=== PATIENT | female | born 1970 | race Caucasian/White ===

== ENCOUNTER 2019-09-13 00:56 | Inpatient (IN) ==
[2019-09-13] MEDS ORDERED: Ondansetron 4 MG/2 ML VIAL IVP ONE (01:33)
[2019-09-13] MEDS ORDERED: 0.9 % Sodium Chloride 1,000 ML IVC ONE ×2 (01:33→02:59)
[2019-09-13] MEDS ORDERED: *HR* FentaNYL (PF) 100 MCG/2 ML VIAL IVP ONE (01:36)
[2019-09-13 02:16] LABS: Bilirubin,Urine Negative (Negative); Blood,Urine Large (Negative); Clarity,Urine Cloudy (Clear); Color,Urine Yellow (Yellow); Glucose,Urine (UA) Normal (Normal); Ketones,Urine Negative (Negative); Leukocyte Esterase,Urine Large (Negative); Nitrite,Urine Positive (Negative); Protein,Urine >=300 mg/dL (Neg-Trace); Specific Gravity,Urine 1.017 (1.010-1.025); Urobilinogen,Urine Normal (Normal)
[2019-09-13 02:18] LABS: Bacteria,Urine Few per hpf (None-Few); Hyaline Casts,Urine None Seen per lpf (None-Few); Squamous Epithelial Cell,Urine Many per lpf (None-Few); WBC,Urine TNTC per hpf (0-3)
[2019-09-13 02:34] LABS: Basophils % 0.2 %; Hemoglobin 14.8 g/dL (11.5-15.4); Mean Corpuscular HGB Conc 34.7 g/dL (31.6-35.5)
[2019-09-13 02:36] LABS: Hematocrit 42.6 % (35.3-44.9); Immature Granulocytes % 7.4 % (0-4); Immature Platelets 4.1 % (1.1-6.1); Lymphocytes # 0.5 K/mcL (0.6-4.6); Lymphocytes % 2.3 %; Mean Corpuscular Hemoglobin 29.5 pg (28.0-33.3); Mean Platelet Volume 10.6 fL (9.4-12.4); Monocytes # 1.1 K/mcL (0.0-1.3); Monocytes % 5.4 %; Neutrophils # 17.6 K/mcL (1.6-8.9); Platelet Count 141 K/mcL (140-400); Red Blood Count 5.01 M/mcL (3.82-4.97); Red Cell Distribution Width 13.2 % (11.5-14.5); Segmented Neutrophils % 84.7 %; White Blood Count 20.8 K/mcL (4.3-11.1)
[2019-09-13 02:51] LABS: Albumin 3.5 g/dL (3.5-5.7); Bilirubin,Direct 0.3 mg/dL (0.0-0.2); Bilirubin,Indirect 0.4 mg/dL (0.0-1.0); Bilirubin,Total 0.7 mg/dL (0.3-1.0); Calcium 9.1 mg/dL (8.6-10.3); Globulin 3.4 g/dL (2.4-3.5); Potassium 3.6 mEq/L (3.5-5.1); Total Protein 6.9 g/dL (6.4-8.9)
[2019-09-13 02:55] LABS: Platelet Estimate Decreased (Normal)
[2019-09-13] MEDS ORDERED: cefTRIAXone 1,000 MG in Water for inj. (sterile) 10 ML IVP ONE (02:58)
[2019-09-13] MEDS ORDERED: *HR* HYDROmorphone (PF) 1 MG/ML SYRINGE IVP ONE (04:04)
[2019-09-13] MEDS ORDERED: Naloxone 0.4 MG/ML INJ IVP PRN (04:10)
[2019-09-13] MEDS: *HR* Heparin 5,000 UNIT/ML VIAL SQ SCH ×3 (05:53→20:33)
[2019-09-13] MEDS: 0.9 % Sodium Chloride 1,000 ML IVC SCH ×2 (05:54→17:39)
[2019-09-13 06:50] LABS: Protein/Creatinine Ratio,Urine 2.95 mg/mg (0.00-0.20)
[2019-09-13] MEDS ORDERED: Levalbuterol Neb 1.25 MG/3 ML ONE (10:37)
[2019-09-13] MEDS ORDERED: lisinopriL 20 MG TABLET ONE (10:45)
[2019-09-13] MEDS ORDERED: *HR* LORazepam 2 MG/ML VIAL ONE (10:51)
[2019-09-13] MEDS ORDERED: Water for inj. (sterile) 10 ML ONE (10:52)
[2019-09-13] MEDS ORDERED: Acetaminophen IV 1,000 MG/100 ML INFUS..BTL ONE (10:52)
[2019-09-13] MEDS ORDERED: *HR* Metoprolol 5 MG/5 ML VIAL IVP ONE (13:17)
[2019-09-13] MEDS ORDERED: 0.9 % Sodium Chloride 1,000 ML IV.SOLN ONE (14:35)
[2019-09-13] MEDS ORDERED: SUMAtriptan succinate 25 MG TABLET ONE ×2 (14:35)
[2019-09-13 16:13] LABS: Acinetobacter baumannii by PCR Not Detected (Not Detect); Candida albicans by PCR Not Detected (Not Detect); Candida glabrata by PCR Not Detected (Not Detect); Candida krusei by PCR Not Detected (Not Detect); Candida parapsilosis by PCR Not Detected (Not Detect); Candida tropicalis by PCR Not Detected (Not Detect); Enterobacter cloacae Cmplx PCR Not Detected (Not Detect); Enterococcus by PCR Not Detected (Not Detect); Escherichia coli by PCR DETECTED (Not Detect); Klebsiella oxytoca by PCR Not Detected (Not Detect); Klebsiella pneumoniae by PCR Not Detected (Not Detect); Proteus by PCR Not Detected (Not Detect); Pseudomonas aeruginosa by PCR Not Detected (Not Detect); Serratia marcescens by PCR Not Detected (Not Detect); Staphylococcus aureus by PCR Not Detected (Not Detect); Staphylococcus by PCR Not Detected (Not Detect); Streptococcus agalactiae(B)PCR Not Detected (Not Detect); Streptococcus by PCR Not Detected (Not Detect); Streptococcus pneumoniae PCR Not Detected (Not Detect); Streptococcus pyogenes (A) PCR Not Detected (Not Detect); blaKPC Carbapenem-Resist Gene Not Detected (Not Detect)
[2019-09-13] MEDS ORDERED: 0.9 % Sodium Chloride 500 ML IVC PRN (16:16)
[2019-09-13 20:18] LABS: Calcium 7.9 mg/dL (8.6-10.3); Potassium 3.9 mEq/L (3.5-5.1)
[2019-09-13] MEDS: cefTRIAXone 2,000 MG in 0.9 % Sodium Chloride Mini Bag 100 ML IVPB SCH (23:57)
[2019-09-14 01:05] LABS: Basophils % 0.2 %; Mean Corpuscular Volume 87.8 fL (83.0-100.0); Red Cell Distribution Width 13.8 % (11.5-14.5)
[2019-09-14 01:07] LABS: Eosinophils % 0.2 %; Hematocrit 38.9 % (35.3-44.9); Hemoglobin 12.9 g/dL (11.5-15.4); Immature Granulocytes % 0.5 % (0-4); Immature Platelets 4.5 % (1.1-6.1); Lymphocytes # 0.9 K/mcL (0.6-4.6); Lymphocytes % 6.5 %; Mean Corpuscular HGB Conc 33.2 g/dL (31.6-35.5); Mean Corpuscular Hemoglobin 29.1 pg (28.0-33.3); Mean Platelet Volume 10.7 fL (9.4-12.4); Monocytes % 4.5 %; Neutrophils # 12.7 K/mcL (1.6-8.9); Platelet Count 103 K/mcL (140-400); Red Blood Count 4.43 M/mcL (3.82-4.97); Segmented Neutrophils % 88.1 %; White Blood Count 14.4 K/mcL (4.3-11.1)
[2019-09-14 01:10] LABS: INR 1.3; Prothrombin Time 14.2 Seconds (9.4-12.1)
[2019-09-14 01:24] LABS: Calcium 8.1 mg/dL (8.6-10.3); Magnesium 1.8 mg/dL (1.6-2.6); Phosphorous 3.6 mg/dL (2.7-4.5); Potassium 3.8 mEq/L (3.5-5.1)
[2019-09-14 01:32] LABS: Monocytes # 0.7 K/mcL (0.0-1.3)
[2019-09-14 01:33] LABS: Platelet Estimate Decreased (Normal)
[2019-09-14] MEDS: SUMAtriptan succinate 50 MG TABLET PO PRN ×2 (04:48→19:48)
[2019-09-14] MEDS: *HR* Heparin 5,000 UNIT/ML VIAL SQ SCH ×3 (06:48→23:52)
[2019-09-14] MEDS: Acetaminophen 325 MG TABLET PO PRN ×3 (09:31→23:39)
[2019-09-14] MEDS: 0.9 % Sodium Chloride 1,000 ML IVC SCH ×2 (15:44→19:28)
[2019-09-15] MEDS: cefTRIAXone 2,000 MG in 0.9 % Sodium Chloride Mini Bag 100 ML IVPB SCH ×2 (00:26→23:28)
[2019-09-15] MEDS ORDERED: *HR* Metoprolol 5 MG/5 ML VIAL IVP ONE ×2 (01:23→01:24)
[2019-09-15] MEDS ORDERED: *HR* LORazepam 2 MG/ML VIAL IVP ONE (02:25)
[2019-09-15 06:01] LABS: Platelet Count 101 K/mcL (140-400); White Blood Count 13.2 K/mcL (4.3-11.1)
[2019-09-15 06:02] LABS: Basophils % 0.3 %; Eosinophils # 0.1 K/mcL (0.0-0.6); Eosinophils % 0.7 %; Hematocrit 36.2 % (35.3-44.9); Hemoglobin 12.6 g/dL (11.5-15.4); Immature Granulocytes % 0.8 % (0-4); Lymphocytes # 1.3 K/mcL (0.6-4.6); Lymphocytes % 9.8 %; Mean Corpuscular HGB Conc 34.8 g/dL (31.6-35.5); Mean Corpuscular Volume 86.2 fL (83.0-100.0); Monocytes # 1.7 K/mcL (0.0-1.3); Monocytes % 13.1 %; Neutrophils # 9.9 K/mcL (1.6-8.9); Segmented Neutrophils % 75.3 %
[2019-09-15 06:04] LABS: Calcium 8.2 mg/dL (8.6-10.3); Potassium 3.6 mEq/L (3.5-5.1)
[2019-09-15 06:23] LABS: Platelet Estimate Slight Decrease (Normal)
[2019-09-15] MEDS: *HR* Heparin 5,000 UNIT/ML VIAL SQ SCH ×3 (07:50→20:11)
[2019-09-15] MEDS: Acetaminophen 325 MG TABLET PO PRN ×2 (07:58→20:10)
[2019-09-15] MEDS ORDERED: SUMAtriptan succinate 50 MG TABLET PO ONE (08:55)
[2019-09-15] MEDS: SUMAtriptan succinate 50 MG TABLET PO PRN ×2 (09:18→16:20)
[2019-09-15] MEDS: 0.9 % Sodium Chloride 1,000 ML IVC SCH ×2 (09:19→20:10)
[2019-09-16] MEDS: *HR* Heparin 5,000 UNIT/ML VIAL SQ SCH ×3 (04:33→21:05)
[2019-09-16 04:48] LABS: Basophils % 0.3 %; Eosinophils % 0.2 %; Hematocrit 38.6 % (35.3-44.9); Immature Granulocytes % 1.3 % (0-4); Lymphocytes # 1.3 K/mcL (0.6-4.6); Mean Corpuscular HGB Conc 33.7 g/dL (31.6-35.5); Mean Corpuscular Hemoglobin 29.1 pg (28.0-33.3); Mean Corpuscular Volume 86.5 fL (83.0-100.0); Mean Platelet Volume 10.4 fL (9.4-12.4); Monocytes % 15.6 %; Neutrophils # 9.2 K/mcL (1.6-8.9); Platelet Count 113 K/mcL (140-400); Red Blood Count 4.46 M/mcL (3.82-4.97); Segmented Neutrophils % 72.6 %; White Blood Count 12.6 K/mcL (4.3-11.1)
[2019-09-16 05:10] LABS: Potassium 3.6 mEq/L (3.5-5.1)
[2019-09-16] MEDS: 0.9 % Sodium Chloride 1,000 ML IVC SCH ×2 (06:57→17:31)
[2019-09-16] MEDS: Acetaminophen 325 MG TABLET PO PRN (12:25)
[2019-09-16] MEDS: SUMAtriptan succinate 50 MG TABLET PO PRN (21:09)
[2019-09-16] MEDS: cefTRIAXone 2,000 MG in 0.9 % Sodium Chloride Mini Bag 100 ML IVPB SCH (23:49)
[2019-09-17] MEDS: 0.9 % Sodium Chloride 1,000 ML IVC SCH ×3 (03:16→23:47)
[2019-09-17] MEDS: *HR* Heparin 5,000 UNIT/ML VIAL SQ SCH ×3 (04:53→20:41)
[2019-09-17 05:38] LABS: Basophils # 0.1 K/mcL (0.0-0.2); Basophils % 0.3 %; Eosinophils # 0.1 K/mcL (0.0-0.6); Eosinophils % 0.3 %; Hematocrit 35.8 % (35.3-44.9); Hemoglobin 11.9 g/dL (11.5-15.4); Immature Granulocytes % 2.4 % (0-4); Lymphocytes # 1.6 K/mcL (0.6-4.6); Mean Corpuscular HGB Conc 33.2 g/dL (31.6-35.5); Mean Corpuscular Hemoglobin 28.7 pg (28.0-33.3); Mean Corpuscular Volume 86.5 fL (83.0-100.0); Mean Platelet Volume 10.2 fL (9.4-12.4); Monocytes # 2.2 K/mcL (0.0-1.3); Monocytes % 12.8 %; Platelet Count 154 K/mcL (140-400); Red Blood Count 4.14 M/mcL (3.82-4.97); Red Cell Distribution Width 14.2 % (11.5-14.5); Segmented Neutrophils % 75.2 %; White Blood Count 17.3 K/mcL (4.3-11.1)
[2019-09-17 05:56] LABS: Calcium 7.8 mg/dL (8.6-10.3); Potassium 3.3 mEq/L (3.5-5.1)
[2019-09-17 06:11] LABS: Platelet Estimate Normal (Normal); Reactive Lymphocytes Present (Not Present)
[2019-09-17] MEDS: Acetaminophen 325 MG TABLET PO PRN ×2 (08:05→20:39)
[2019-09-17] MEDS ORDERED: *HR* LORazepam 2 MG/ML VIAL IVP ONE ×2 (13:39→20:11)
[2019-09-17] MEDS: Nicotine 21 MG PATCH.TD24 TD SCH (13:48)
[2019-09-17] MEDS: cefTRIAXone 2,000 MG in 0.9 % Sodium Chloride Mini Bag 100 ML IVPB SCH (23:48)
[2019-09-18] MEDS: Acetaminophen 325 MG TABLET PO PRN ×2 (04:58→17:26)
[2019-09-18 05:54] LABS: Basophils % 0.2 %; Eosinophils # 0.1 K/mcL (0.0-0.6); Eosinophils % 0.4 %; Hemoglobin 11.3 g/dL (11.5-15.4); Immature Granulocytes % 3.5 % (0-4); Lymphocytes # 1.8 K/mcL (0.6-4.6); Mean Corpuscular HGB Conc 33.2 g/dL (31.6-35.5); Mean Corpuscular Hemoglobin 28.7 pg (28.0-33.3); Mean Corpuscular Volume 86.3 fL (83.0-100.0); Mean Platelet Volume 9.9 fL (9.4-12.4); Monocytes # 1.8 K/mcL (0.0-1.3); Monocytes % 10.5 %; Neutrophils # 13.2 K/mcL (1.6-8.9); Platelet Count 221 K/mcL (140-400); Red Blood Count 3.94 M/mcL (3.82-4.97); Segmented Neutrophils % 75.4 %; White Blood Count 17.5 K/mcL (4.3-11.1)
[2019-09-18 06:07] LABS: Calcium 7.6 mg/dL (8.6-10.3); Potassium 3.4 mEq/L (3.5-5.1)
[2019-09-18 06:22] LABS: Platelet Estimate Normal (Normal)
[2019-09-18] MEDS: *HR* Heparin 5,000 UNIT/ML VIAL SQ SCH ×3 (08:09→20:52)
[2019-09-18] MEDS: *HR* LORazepam 0.5 MG TABLET PO PRN ×2 (08:47→17:26)
[2019-09-18] MEDS: Nicotine 21 MG PATCH.TD24 TD SCH (08:48)
[2019-09-18] MEDS: 0.9 % Sodium Chloride 1,000 ML IVC SCH ×3 (08:52→20:51)
[2019-09-18] MEDS ORDERED: Isovue-370 500 ML BOTTLE IVP ONE (09:39)
[2019-09-18] MEDS ORDERED: 0.9 % Sodium Chloride 500 ML IVC ONE (13:31)
[2019-09-18] MEDS ORDERED: Lidocaine Viscous Oral Soln 15 ML SOLUTION MM PRN (13:31)
[2019-09-18] MEDS: *HR* Midazolam HCl 5 MG/5 ML VIAL IVP PRN ×2 (13:50→13:55)
[2019-09-18] MEDS: *HR* FentaNYL (PF) 100 MCG/2 ML VIAL IVP PRN ×3 (13:50→14:00)
[2019-09-19] MEDS: cefTRIAXone 2,000 MG in 0.9 % Sodium Chloride Mini Bag 100 ML IVPB SCH ×2 (00:21→23:58)
[2019-09-19 03:07] LABS: Basophils # 0.1 K/mcL (0.0-0.2); Basophils % 0.4 %; Eosinophils % 0.2 %; Hematocrit 33.4 % (35.3-44.9); Hemoglobin 11.1 g/dL (11.5-15.4); Immature Granulocytes % 2.3 % (0-4); Lymphocytes # 1.7 K/mcL (0.6-4.6); Mean Corpuscular HGB Conc 33.2 g/dL (31.6-35.5); Mean Corpuscular Hemoglobin 29.4 pg (28.0-33.3); Mean Corpuscular Volume 88.4 fL (83.0-100.0); Monocytes % 10.4 %; Neutrophils # 15.1 K/mcL (1.6-8.9); Platelet Count 300 K/mcL (140-400); Red Blood Count 3.78 M/mcL (3.82-4.97); Red Cell Distribution Width 14.3 % (11.5-14.5); Segmented Neutrophils % 77.7 %; White Blood Count 19.4 K/mcL (4.3-11.1)
[2019-09-19 03:22] LABS: Calcium 7.6 mg/dL (8.6-10.3); Potassium 3.1 mEq/L (3.5-5.1)
[2019-09-19] MEDS: 0.9 % Sodium Chloride 1,000 ML IVC SCH ×3 (05:04→21:35)
[2019-09-19] MEDS: *HR* Heparin 5,000 UNIT/ML VIAL SQ SCH ×3 (05:05→23:53)
[2019-09-19] MEDS: Nicotine 21 MG PATCH.TD24 TD SCH (08:41)
[2019-09-19] MEDS: *HR* LORazepam 0.5 MG TABLET PO PRN (08:43)
[2019-09-19] MEDS: Acetaminophen 325 MG TABLET PO PRN (08:43)
[2019-09-19] MEDS ORDERED: Melatonin 3 MG TABLET PO ONE (19:24)
[2019-09-19] MEDS ORDERED: *HR* LORazepam 1 MG TABLET PO ONE (19:24)
[2019-09-19] MEDS: Vancomycin Oral Soln 125 MG/2.5 ML UDC PO SCH (23:59)
[2019-09-20] MEDS: *HR* Heparin 5,000 UNIT/ML VIAL SQ SCH (04:59)
[2019-09-20 05:10] LABS: Basophils # 0.1 K/mcL (0.0-0.2); Basophils % 0.3 %; Eosinophils # 0.1 K/mcL (0.0-0.6); Eosinophils % 0.4 %; Hematocrit 33.1 % (35.3-44.9); Hemoglobin 11.1 g/dL (11.5-15.4); Immature Granulocytes % 3.1 % (0-4); Lymphocytes # 1.7 K/mcL (0.6-4.6); Lymphocytes % 9.1 %; Mean Corpuscular HGB Conc 33.5 g/dL (31.6-35.5); Mean Corpuscular Hemoglobin 29.6 pg (28.0-33.3); Mean Corpuscular Volume 88.3 fL (83.0-100.0); Mean Platelet Volume 9.8 fL (9.4-12.4); Monocytes # 1.6 K/mcL (0.0-1.3); Monocytes % 8.7 %; Neutrophils # 14.3 K/mcL (1.6-8.9); Platelet Count 387 K/mcL (140-400); Red Blood Count 3.75 M/mcL (3.82-4.97); Red Cell Distribution Width 14.5 % (11.5-14.5); Segmented Neutrophils % 78.4 %; White Blood Count 18.3 K/mcL (4.3-11.1)
[2019-09-20 05:32] LABS: Calcium 7.8 mg/dL (8.6-10.3); Potassium 3.4 mEq/L (3.5-5.1)
[2019-09-20] MEDS: 0.9 % Sodium Chloride 1,000 ML IVC SCH (06:03)
[2019-09-20 09:24] VITALS: BP 149/93
[2019-09-20] MEDS: Vancomycin Oral Soln 125 MG/2.5 ML UDC PO SCH (09:48)
[2019-09-20] MEDS: Nicotine 21 MG PATCH.TD24 TD SCH (09:49)
== END 2019-09-20 10:03 | disposition left against medical advice (07) | DRG 871 ==
LOC: 3ANU 00:56 → EMEROOARM 00:56 → SUATTDRO 04:19 → 3ANU 04:41 → 2NNU 16:02 → SUATTDRO 09-14 09:33 → 3ANU 09-16 16:42
PROVIDERS: ADMIT Internal Medicine; ATTEND Internal Medicine